=== PATIENT | female | born 1995 | race Caucasian/White ===

== ENCOUNTER 2017-12-12 22:26 | Emergency (ER) | payer BC, OTHER ==
[2017-12-12 22:37] VITALS: RESP 18
[2017-12-12] MEDS ORDERED: ONDANSETRON 4 MG/2 ML VIAL IVP STA (22:57)
[2017-12-12] MEDS ORDERED: SODIUM CHLORIDE 0.9% 1,000 ML IV STA (22:57)
[2017-12-12 23:39] LABS: Basophils % (A) 1 %; Eosinophils # (A) 0.1 k/uL (0-0.7); Eosinophils % (A) 1 %; HGB 13.7 gm/dL (11.4-16.0); Lymphocytes # (A) 2.1 k/uL (1.0-4.8); Lymphocytes % (A) 26 %; MCH 28.4 pg (25.0-35.0); MCHC 32.6 g/dL (31.0-37.0); MCV 87.1 fL (80.0-100.0); Mean Platelet Volume 6.7; Monocytes # (A) 0.6 k/uL (0-1.0); Monocytes % (A) 7 %; Neutrophils # (A) 5.3 k/uL (1.3-7.7); Neutrophils % (A) 65 %; Platelet Count 418 k/uL (150-450); RBC 4.83 m/uL (3.80-5.40); RDW 12.4 % (11.5-15.5); WBC 8.2 k/uL (3.8-10.6)
[2017-12-12 23:46] LABS: Appearance,Urine Clear (Clear); Bacteria,Urine Occasional /hpf; Bilirubin,Urine Negative (Negative); Blood,Urine Large (Negative); Color,Urine Yellow; Glucose,Urine (UA) Negative (Negative); Ketones,Urine Negative (Negative); Leukocyte Esterase,Urine Small (Negative); Mucus,Urine Occasional /hpf; Nitrite,Urine Negative (Negative); Protein,Urine Trace (Negative); RBC,Urine 20 /hpf (0-5); Specific Gravity,Urine 1.025 (1.001-1.035); Squamous Epithelial Cell,Urine 4 /hpf (0-4); Urobilinogen,Urine <2.0 mg/dL (<2.0); WBC,Urine 13 /hpf (0-5)
[2017-12-12 23:50] LABS: ALT 21 U/L (9-52); AST 20 U/L (14-36); Albumin 4.3 g/dL (3.5-5.0); Alkaline Phosphatase 74 U/L (38-126); Amylase 77 U/L (30-110); Anion Gap 7 mmol/L; Blood Urea Nitrogen 11 mg/dL (7-17); Calcium 9.7 mg/dL (8.4-10.2); Carbon Dioxide 27 mmol/L (22-30); Chloride 108 mmol/L (98-107); Glucose 95 mg/dL (74-99); Lipase 76 U/L (23-300); Potassium 3.9 mmol/L (3.5-5.1); Sodium 142 mmol/L (137-145); Total Bilirubin 0.3 mg/dL (0.2-1.3); Total Protein 7.2 g/dL (6.3-8.2)
[2017-12-12] MEDS ORDERED: IOPAMIDOL-300 CONTRAST 30 ML VIAL (ORAL USE) PO PRN (23:57)
--- NOTE | 2017-12-13 00:46 | ED ---
General Adult HPI - General Chief complaint: Abdominal Pain Stated complaint: Abd pain Time Seen by Provider: 12/12/17 22:43 Source: patient, RN notes reviewed Mode of arrival: ambulatory Limitations: no limitations - History of Present Illness Initial comments: 22-year-old female presents to the emergency department for a chief complaint of lower right abdominal pain times 1.5 hours. Patient was at her boyfriend's game when she felt a sudden pain in her right lower abdomen. Patient states it made her nauseous at the time. Patient denies any vomiting. No diarrhea. Patient states the pain is worse with movement. Otherwise, the pain is constant at a 5 when she is resting. Patient denies any history of abdominal surgeries. Patient denies any fevers or chills at home. Patient denies any urinary symptoms such as burning with urination. Patient states she does have blood in her urine as of today. No history of kidney stones. Patient has no other complaints at this time including shortness of breath, chest pain, abdominal pain, nausea or vomiting, headache, or visual changes. - Related Data Home Medications Medication Instructions Recorded Confirmed Norgestimate-Ethinyl Estradiol 1 each PO DAILY 12/12/17 12/12/17 [Trinessa Tablet] Previous Rx's Medication Instructions Recorded Ibuprofen [Motrin] 600 mg PO Q6HR PRN #20 tab 12/13/17 Nitrofurantoin Monohyd/M-Cryst 100 mg PO Q12HR 5 Days cap 12/13/17 [Macrobid] Ondansetron HCl [Zofran] 4 mg PO Q8HR PRN #14 tablet 12/13/17 Allergies Allergy/AdvReac Type Severity Reaction Status Date / Time No Known Allergies Allergy Verified 12/12/17 22:33 Review of Systems ROS Statement: Those systems with pertinent positive or pertinent negative responses have been documented in the HPI. ROS Other: All systems not noted in ROS Statement are negative. Past Medical History Past Medical History: No Reported History History of Any Multi-Drug Resistant Organisms: None Reported Past Surgical History: Adenoidectomy Past Psychological History: No Psychological Hx Reported Smoking Status: Current some day smoker Past Alcohol Use History: Occasional Past Drug Use History: None Reported General Exam Limitations: no limitations General appearance: alert, in no apparent distress Head exam: Present: atraumatic, normocephalic, normal inspection Eye exam: Present: normal appearance. Absent: scleral icterus, conjunctival injection ENT exam: Present: normal exam, normal oropharynx, mucous membranes moist, TM's normal bilaterally, normal external ear exam Neck exam: Present: normal inspection, full ROM. Absent: tenderness, meningismus, lymphadenopathy Respiratory exam: Present: normal lung sounds bilaterally. Absent: respiratory distress, wheezes, rales, rhonchi, stridor Cardiovascular Exam: Present: regular rate, normal rhythm, normal heart sounds. Absent: systolic murmur, diastolic murmur, rubs, gallop, clicks GI/Abdominal exam: Present: soft, tenderness (tenderness in the RLQ, mild tenderness in the RUQ.), normal bowel sounds, other (pos obturator, neg rovsing. ). Absent: distended, guarding, rebound, rigid Back exam: Present: CVA tenderness (R) Neurological exam: Present: alert, oriented X3, CN II-XII intact Course Vital Signs 12/12/17 12/13/17 12/13/17 22:33 01:43 03:11 Temperature 98.8 F 97.9 F 97.8 F Pulse Rate 80 74 64 Respiratory 18 18 18 Rate Blood Pressure 119/76 110/52 109/56 O2 Sat by Pulse 96 98 99 Oximetry Medical Decision Making - Medical Decision Making 22-year-old female presents to the emergency department for chief, and of right lower quadrant pain 1.5 hours. Patient noticed the pain while she was at a baseline. Movement makes the pain worse. Patient denies fevers or chills at home. Admits to nausea no vomiting or diarrhea. Last had a bowel movement earlier today and it was normal. On exam patient is right lower quadrant tenderness with right CVA tenderness. CT of the abdomen pelvis shows negative scan. Normal appendix. No evidence of renal stone or obstruction. Ultrasound of the pelvis shows no evidence of ovarian torsion. Normal transvaginal pelvic ultrasound. I did offer a pelvic exam but patient refuses. At this time I do not see any emergent cause for the abdominal pain. She is feeling somewhat better and nausea has subsided on reexamination. Patient did self swab for gonorrhea and chlamydia, denies any dishcarge at this time but admits to mild bleeding. She will be treated prophylactically here. She was educated to follow -up with [facility] or primary care in 1-2 days. She was given Motrin and Zofran for home. Patient is to return to the emergency Department if she has worsening symptoms. - Lab Data Result diagrams: 12/12/17 23:23 12/12/17 23:23 Lab Results 12/12/17 12/12/17 12/12/17 Range/Units 23:23 23:23 23:23 WBC 8.2 (3.8-10.6) k/uL RBC 4.83 (3.80-5.40) m/uL Hgb 13.7 (11.4-16.0) gm/dL Hct 42.0 (34.0-46.0) % MCV 87.1 (80.0-100.0) fL MCH 28.4 (25.0-35.0) pg MCHC 32.6 (31.0-37.0) g/dL RDW 12.4 (11.5-15.5) % Plt Count 418 (150-450) k/uL Neutrophils % 65 % Lymphocytes % 26 % Monocytes % 7 % Eosinophils % 1 % Basophils % 1 % Neutrophils # 5.3 (1.3-7.7) k/uL Lymphocytes # 2.1 (1.0-4.8) k/uL Monocytes # 0.6 (0-1.0) k/uL Eosinophils # 0.1 (0-0.7) k/uL Basophils # 0.0 (0-0.2) k/uL Sodium 142 (137-145) mmol/L Potassium 3.9 (3.5-5.1) mmol/L Chloride 108 H (98-107) mmol/L Carbon Dioxide 27 (22-30) mmol/L Anion Gap 7 mmol/L BUN 11 (7-17) mg/dL Creatinine 0.90 (0.52-1.04) mg/dL Est GFR (CKD-EPI)AfAm >90 (>60 ml/min/1.73 sqM) Est GFR (CKD-EPI)NonAf >90 (>60 ml/min/1.73 sqM) Glucose 95 (74-99) mg/dL Calcium 9.7 (8.4-10.2) mg/dL Total Bilirubin 0.3 (0.2-1.3) mg/dL AST 20 (14-36) U/L ALT 21 (9-52) U/L Alkaline Phosphatase 74 (38-126) U/L Total Protein 7.2 (6.3-8.2) g/dL Albumin 4.3 (3.5-5.0) g/dL Amylase 77 (30-110) U/L Lipase 76 (23-300) U/L Urine Color Yellow Urine Appearance Clear (Clear) Urine pH 6.0 (5.0-8.0) Ur Specific [place] 1.025 (1.001-1.035) Urine Protein Trace H (Negative) Urine Glucose (UA) Negative (Negative) Urine Ketones Negative (Negative) Urine Blood Large H (Negative) Urine Nitrite Negative (Negative) Urine Bilirubin Negative (Negative) Urine Urobilinogen <2.0 (<2.0) mg/dL Ur Leukocyte Esterase Small H (Negative) Urine RBC 20 H (0-5) /hpf Urine WBC 13 H (0-5) /hpf Urine WBC Clumps Rare H (None) /hpf Ur Squamous Epith Cells 4 (0-4) /hpf Urine Bacteria Occasional H (None) /hpf Urine Mucus Occasional H (None) /hpf Urine HCG, Qual (Not Detectd) 12/12/17 Range/Units 23:23 WBC (3.8-10.6) k/uL RBC (3.80-5.40) m/uL Hgb (11.4-16.0) gm/dL Hct (34.0-46.0) % MCV (80.0-100.0) fL MCH (25.0-35.0) pg MCHC (31.0-37.0) g/dL RDW (11.5-15.5) % Plt Count (150-450) k/uL Neutrophils % % Lymphocytes % % Monocytes % % Eosinophils % % Basophils % % Neutrophils # (1.3-7.7) k/uL Lymphocytes # (1.0-4.8) k/uL Monocytes # (0-1.0) k/uL Eosinophils # (0-0.7) k/uL Basophils # (0-0.2) k/uL Sodium (137-145) mmol/L Potassium (3.5-5.1) mmol/L Chloride (98-107) mmol/L Carbon Dioxide (22-30) mmol/L Anion Gap mmol/L BUN (7-17) mg/dL Creatinine (0.52-1.04) mg/dL Est GFR (CKD-EPI)AfAm (>60 ml/min/1.73 sqM) Est GFR (CKD-EPI)NonAf (>60 ml/min/1.73 sqM) Glucose (74-99) mg/dL Calcium (8.4-10.2) mg/dL Total Bilirubin (0.2-1.3) mg/dL AST (14-36) U/L ALT (9-52) U/L Alkaline Phosphatase (38-126) U/L Total Protein (6.3-8.2) g/dL Albumin (3.5-5.0) g/dL Amylase (30-110) U/L Lipase (23-300) U/L Urine Color Urine Appearance (Clear) Urine pH (5.0-8.0) Ur Specific [place] (1.001-1.035) Urine Protein (Negative) Urine Glucose (UA) (Negative) Urine Ketones (Negative) Urine Blood (Negative) Urine Nitrite (Negative) Urine Bilirubin (Negative) Urine Urobilinogen (<2.0) mg/dL Ur Leukocyte Esterase (Negative) Urine RBC (0-5) /hpf Urine WBC (0-5) /hpf Urine WBC Clumps (None) /hpf Ur Squamous Epith Cells (0-4) /hpf Urine Bacteria (None) /hpf Urine Mucus (None) /hpf Urine HCG, Qual Not Detected (Not Detectd) Disposition Clinical Impression: Abdominal pain Disposition: HOME SELF-CARE Condition: Good Instructions: Abdominal Pain (ED) Additional Instructions: Please take antibiotic as directed. Please take Motrin or Tylenol for pain. Take Zofran for nausea as needed. Return to the emergency department if you have any worsening symptoms. Otherwise follow-up with [facility] or primary care in 1-2 days. Prescriptions: Ibuprofen [Motrin] 600 mg PO Q6HR PRN #20 tab PRN Reason: Pain Nitrofurantoin Monohyd/M-Cryst [Macrobid] 100 mg PO Q12HR 5 Days cap Ondansetron HCl [Zofran] 4 mg PO Q8HR PRN #14 tablet PRN Reason: Nausea Is patient prescribed a controlled substance at d/c from ED?: No Referrals: Emil Wallace MD [Primary Care Provider] - 1-2 days Selin Castaneda DO [Doctor of Osteopathic Medicine] - 1-2 days Time of Disposition: 02:11
--- NOTE | 2017-12-13 00:54 | CT ---
EXAMINATION TYPE: CT abdomen pelvis wo con DATE OF EXAM: 12/13/2017 COMPARISON: None HISTORY: RLQ ABD PAIN CT DLP: 590.50 mGycm Automated exposure control for dose reduction was used. TECHNIQUE: Helical acquisition of images was performed from the lung bases through the pelvis. FINDINGS: Lung bases are clear. There is no pleural effusion. Heart size is normal. Liver spleen pancreas gallbladder appear normal. Bile ducts are not dilated. There is no adrenal mass. Kidneys have normal size and contour. There is no hydronephrosis. There is no evidence of renal calculus. There is no retroperitoneal adenopathy. There is no ascites. There is no sign of free air. There is no intestinal wall thickening. There are no dilated loops. Uterus is an teverted. Bladder distends smoothly. Bony structures are intact. The appendix is posterior and extends down into the pelvis. Appendix appears normal. There is no evid ence of a pelvic mass. IMPRESSION: NEGATIVE CT SCAN OF THE ABDOMEN AND PELVIS. NORMAL APPENDIX. NO EVIDENCE OF RENAL STONE OR OBSTRUCTIO N.
--- NOTE | 2017-12-13 01:17 | US ---
EXAMINATION TYPE: US transvaginal DATE OF EXAM: 12/13/2017 COMPARISON: CT CLINICAL HISTORY: Pain. Pt states right side ABD/Pelvic pain and abnormal vaginal spotting that start ed today TECHNIQUE: Transvaginal (TV). Date of LMP: 11/30/2017 EXAM MEASUREMENTS: Uterus: 6.9 x 3.0 x 3.6 cm Endometrial Stripe: 0.5 cm Right Ovary: 3.1 x 2.5 x 3.0 cm Left Ovary: 2.8 x 2.1 x 1.9 cm 1. Uterus: Anteverted wnl 2. Endometrium: wnl 3. Right Ovary: wnl 4. Left Ovary: wnl Spectral, color and waveform doppler imaging shows good arterial and venous flow within the ovaries ; there is no evidence for ovarian torsion. 5. Bilateral Adnexa: wnl 6. Posterior cul-de-sac: wnl Normal pelvis IMPRESSION: Normal transvaginal pelvic sonogram. No evidence of ovarian torsion.
[2017-12-13] MEDS ORDERED: KETOROLAC 30 MG/ML 1 ML VIAL IM STA (02:00)
[2017-12-13] MEDS ORDERED: IBUPROFEN 600 MG TAB PO STA (02:10)
[2017-12-13] MEDS ORDERED: AZITHROMYCIN 500 MG TAB PO STA (02:10)
[2017-12-13] MEDS ORDERED: cefTRIAXone 250 MG VIAL IM STA (02:10)
[2017-12-13 03:14] VITALS: BP 109/56; PULSE 64; TEMP 97.8
[2017-12-14 13:30] LABS: N. gonorrhoeae,PCR Negative (Neg,Equiv); Neisseria Source Vagina
[2017-12-14 13:33] LABS: C. trachomatis,PCR Negative (Neg,Equiv); Chlamydia trachomatis Source Vagina
== END 2017-12-13 03:22 | disposition home or self-care (01) ==
LOC: EC 22:26
DX: R10.31 Right lower quadrant pain (principal); R11.0 Nausea; R31.9 Hematuria, unspecified; F17.200 Nicotine dependence, unspecified, uncomplicated; Z79.3 Long term (current) use of hormonal contraceptives
CPT/HCPCS: 36415; 80053; 82150; 83690; 85025; 81001; 81025; 87491; 87591; 87086; 93975; 76830; 74176; 99284; 96374; 96361; 96372; J2405; J0696

== ENCOUNTER 2019-06-06 20:42 | Emergency (ER) | payer MEDICAID, BC ==
--- NOTE | 2019-06-06 21:40 | XR ---
EXAMINATION TYPE: XR chest 2V DATE OF EXAM: 06/06/2019 COMPARISON: NONE HISTORY: Cough TECHNIQUE: 2 views FINDINGS: Heart and mediastinum are normal. Lungs are clear. Diaphragm is normal. Bony thorax appears normal. IMPRESSION: Normal chest. Normal heart.
--- NOTE | 2019-06-06 22:00 | ED ---
URI HPI - General Chief Complaint: Upper Respiratory Infection Stated Complaint: nose bleed Time Seen by Provider: 06/06/19 20:57 Source: patient Mode of arrival: ambulatory Limitations: no limitations - History of Present Illness Initial Comments: 23-year-old female presenting today for chief complaint of cough, congestion, nose bleed x 1 day. Patient states that today while at work she developed a left nares nosebleed that has since subsided upon arrival in the emergency department. Patient states she felt lightheaded when she lifted her blood de nies any chest pain shortness of breath and states that she has had cough and congestion. Patient denies any other complaints. Denies fevers neck stiffness and headache dizziness nausea vomiting diarrhea. Patient denies . Patient presented emergency department today nosebleed, cough-with concern for pneumonia. - Related Data Home Medications Medication Instructions Recorded Confirmed Norgestimate-Ethinyl Estradiol 1 each PO DAILY 12/12/17 12/12/17 [Trinessa Tablet] Previous Rx's Medication Instructions Recorded Ibuprofen [Motrin] 600 mg PO Q6HR PRN #20 tab 12/13/17 Nitrofurantoin Monohyd/M-Cryst 100 mg PO Q12HR 5 Days cap 12/13/17 [Macrobid] Ondansetron HCl [Zofran] 4 mg PO Q8HR PRN #14 tablet 12/13/17 Azithromycin [Zithromax Z-pack] 0 mg PO DIRECTED #6 tab 06/06/19 Allergies Allergy/AdvReac Type Severity Reaction Status Date / Time No Known Allergies Allergy Verified 06/06/19 20:47 Review of Systems ROS Statement: Those systems with pertinent positive or pertinent negative responses have been documented in the HPI. ROS Other: All systems not noted in ROS Statement are negative. Past Medical History Past Medical History: No Reported History History of Any Multi-Drug Resistant Organisms: None Reported Past Surgical History: Adenoidectomy Past Psychological History: No Psychological Hx Reported Smoking Status: Current some day smoker Past Alcohol Use History: Occasional Past Drug Use History: None Reported General Exam - General Exam Comments Initial Comments: General: The patient is awake and alert, in no distress, and does not appear acutely ill. Eye: +3 mm pupils are equal, round and reactive to light, extra-ocular movements are intact. No nystagmus. There is normal conjunctiva bilaterally. No signs of icterus. No photophobia Ears, nose, mouth and throat: There are moist mucous membranes and no oral lesions. Oropharynx was not erythematous there is no tonsillar enlargement exudates or lesions. Uvula midline. Tympanic membranes are not erythematous or is no effusions bulging or retraction. No tenderness to palpation of the mastoid. No anterior cervical lymphadenopathy. Rhinorrhea, clear and bilateral nares. No tripoding, no drooling. No epistaxis Neck: The neck is supple, there is no tenderness or JVD. No nuchal rigidity Cardiovascular: There is a regular rate and rhythm. No murmur, rub or gallop is appreciated. Respiratory: Lungs are clear to auscultation, respirations are non-labored, breath sounds are equal. No wheezes, stridor, rales, or rhonchi. No retractions or abdominal breathing. Gastrointestinal: Soft, non-distended, non-tender abdomen without masses or organomegaly noted. There is no rebound or guarding present. Bowel sounds are unremarkable. Musculoskeletal: Normal ROM, no tenderness. Strength 5/5. Sensation intact. Radial pulses equal bilaterally 2+. Neurological: A&O x 3. CN II-XII intact grossly, There are no obvious motor or sensory deficits. Coordination appears grossly intact. Speech appears normal, no muffling. Skin: Skin is warm and dry and no rashes or lesions are noted. No extremity edema Psychiatric: Cooperative Limitations: no limitations Course Vital Signs 06/06/19 06/06/19 20:45 22:02 Temperature 98.4 F 98.0 F Pulse Rate 87 74 Respiratory 20 18 Rate Blood Pressure 114/74 118/71 O2 Sat by Pulse 98 99 Oximetry Medical Decision Making - Medical Decision Making 23yo presenting for cough, congestion. Nose bleed. No active bleeding on examination. Patient has obvious upper rest or symptoms. Lungs clear. Chest x-ray no focal findings. Patient denies any other complaints appears well afebrile nontoxic in appearance at this time feel she stated for discharge with the use of humidifier at home, azithromycin and pcp f/u. Patient is agreeable to this care plan discharge at this time. Return parameters were discussed at length the patient was discharged. While discussing case with attending provider - Lab Data Lab Results 06/06/19 Range/Units 21:20 Influenza Type A RNA Not Detected (Not Detectd) Influenza Type B (PCR) Not Detected (Not Detectd) Disposition Clinical Impression: Cough, Epistaxis, Congestion of nasal sinus Disposition: HOME SELF-CARE Condition: Good Additional Instructions: Please use medication as discussed. Please follow-up with family doctor in the next 2 days.. Please return to emergency room if the symptoms increase or worsen or for any other concerns. Prescriptions: Azithromycin [Zithromax Z-pack] 0 mg PO DIRECTED #6 tab Is patient prescribed a controlled substance at d/c from ED?: No Referrals: Morales Ibarra DO [Primary Care Provider] - 1-2 days Time of Disposition: 21:59
[2019-06-06 22:03] VITALS: BP 118/71; PULSE 74; RESP 18; TEMP 98
== END 2019-06-06 22:05 | disposition home or self-care (01) ==
LOC: EC 20:42
DX: R05 Cough (principal); R09.81 Nasal congestion; R04.0 Epistaxis; Z79.3 Long term (current) use of hormonal contraceptives
CPT/HCPCS: 71046; 87502; 99283

== ENCOUNTER → 2019-09-26 | Outpatient (CLI) | payer MEDICAID, BC | END | disposition home or self-care (01) | LOC: LABWHC1 12:07 | PROVIDERS: ATTEND Pediatrics Pediatric Infectious Diseases | DX: U07.1 COVID-19 (principal) | CPT/HCPCS: 87635 ==

== ENCOUNTER → 2019-12-22 | Outpatient (CLI) | payer MEDICAID, BC | END | disposition home or self-care (01) | LOC: LABWHC1 12-21 11:57 | PROVIDERS: ATTEND Pediatrics Pediatric Infectious Diseases | DX: Z20.828 Contact with and (suspected) exposure to other viral communicable diseases (principal) | CPT/HCPCS: 87635; C9803 ==

== ENCOUNTER 2020-03-29 09:40 | Day surgery (SDC) | payer MEDICAID, BC ==
[2020-03-27 12:04] VITALS: BMI 40.7
[~2020-03-29 09:40] MED LIST: LACTATED RINGERS 1,000 ML IV SCH
[2020-03-29 10:14] VITALS: RESP 16; TEMP 97.9
[2020-03-29] MEDS ORDERED: LIDOCAINE 1% (10MG/ML) FOR IV START INTRADERMA ONE (10:14)
[2020-03-29] MEDS ORDERED: PROPOFOL 10 MG/ML 20 ML VIAL IV ONE (10:30)
--- NOTE | 2020-03-29 10:54 | P.PCN ---
Date of Procedure: 03/29/20 Description of Procedure: BRIEF HISTORY: Patient is a 24-year-old female who presents for outpatient colonoscopy for evaluation of change in bowel habits and melena. The patient reports frequent loose bowel movements, this is been present for many years but has gotten worse in the past 6 months. She reports blood and mucus per rectum. Family history of Crohn's disease in her mother. PROCEDURE PERFORMED: Colonoscopy with biopsy. PREOPERATIVE DIAGNOSIS: Melena, change in bowel habits, blood per rectum, no prior colonoscopy. ESTIMATED BLOOD LOSS: Minimal. IV sedation per Anesthesia. PROCEDURE: After informed consent was obtained, the patient, was brought into the endoscopy unit. IV sedation was administered by Anesthesia under continuous monitoring. Digital rectal examination was normal. Initially the Olympus CF-190 flexible video colonoscope was then inserted in the rectum, gradually advanced into the cecum without any difficulty. Careful examination was performed as the scope was gradually being withdrawn. Ileocecal valve and the appendiceal orifice were visualized and appeared normal. Prep was excellent. Mucosa of the cecum, ascending colon, transverse colon, descending colon, sigmoid colon, and rectum appeared normal, with random biopsies taken of the right colon in the setting of altered bowel function. Terminal ileum was intubated and appeared normal with biopsies taken. Retroflexion was performed in the rectum and no lesions were seen, low-grade internal hemorrhoids. The patient tolerated the procedure well. IMPRESSION: Internal hemorrhoids. Otherwise, normal-appearing colon from rectum to cecum with normal-appearing terminal ileum and random biopsies taken of the right colon, left colon and terminal ileum. RECOMMENDATIONS: Findings of this examination were discussed with the patient in her mother. Okay to resume diet. Okay to resume medications. Await pathology from biopsies. Extensive discussion with the patient regarding local hemorrhoidal care including limiting time on toilet, Preparation H and Tucks pads.
[2020-03-29 11:16] VITALS: BP 105/62; PULSE 67
== END 2020-03-29 11:30 | disposition home or self-care (01) ==
LOC: ORWHC2ENDO 09:40
PROVIDERS: ATTEND Internal Medicine
DX: K64.8 Other hemorrhoids (principal); E66.01 Morbid (severe) obesity due to excess calories; Z79.899 Other long term (current) drug therapy; Z98.890 Other specified postprocedural states; Z83.79 Family history of other diseases of the digestive system; Z68.38 Body mass index [BMI] 38.0-38.9, adult
CPT/HCPCS: 81025; 88305; 45380; J2704

== ENCOUNTER → 2022-03-21 | Outpatient (CLI) | payer OTHER ==
[2022-03-21 19:23] LABS: Gliadin AB IgA, Deaminated NEGATIVE (NEGATIVE); Gliadin AB IgA, Unit 1.3 U/mL; Gliadin AB IgG, Deaminated NEGATIVE (NEGATIVE); Gliadin AB IgG, Unit <0.4 U/mL
== END | disposition home or self-care (01) ==
LOC: LABWHC1 12:21
PROVIDERS: ATTEND Internal Medicine Gastroenterology
DX: K52.9 Noninfective gastroenteritis and colitis, unspecified (principal)
CPT/HCPCS: 36415; 83516